=== PATIENT | female | born 1970 | race Caucasian/White ===

== ENCOUNTER 2023-04-19 06:01 | Observation (INO) | payer BC, SELFPAY ==
[2023-04-19] VITALS (7 sets, daily range): BP systolic 108–148; BP diastolic 57–87; PULSE 58–73; RESP 15–20; TEMP 36.4–36.7; O2SAT 94–99; BMI 37.2
--- NOTE | ~2023-04-19 | CT_ITS ---
EXAMINATION: CT ANGIOGRAM HEAD CT ANGIOGRAM NECK CLINICAL INFORMATION: Right-sided facial and arm numbness. COMPARISON: CT head from 04/19/2023. TECHNIQUE: Initial noncontrast disability hearing officer imaging of the head and neck was performed. Noncontrast head CT was also performed. Test bolus sequences followed by intravenous administration 70 mL of Omnipaque 350. Helical imaging was performed in the axial plane from the aortic arch to the skull vertex. Delayed postcontrast imaging of the head was also performed. The data was processed at the electronic technologist's workstation for generation of MIP sequences. Angled MIPs and volume rendered reformatted images were also generated at an offline 3D workstation. Stenoses are assessed in accordance with NASCET criteria unless otherwise indicated. This CT examination was performed using dose optimization techniques as appropriate, variously including the following: *Automated exposure control. *Adjustment of mA and/or kV according to patient size (this includes techniques or standardized protocols for targeted exams where dose is matched to indication/reason for exam; i.e. extremities or head). *Use of iterative reconstruction technique. DLP: 2126 mGy-cm FINDINGS: CT Head: There is no evidence of acute intracranial hemorrhage or edematous territorial infarction. There is no abnormal attenuation within the brain parenchyma. Bates-white matter differentiation is preserved. The ventricles are normal in size and configuration. No evidence for obstructive hydrocephalus. No abnormal mass effect or midline shift. No extra-axial fluid collections. No pathologic intra-axial enhancement or regional oligemia. No acute soft tissue or osseous abnormalities. Mild mucosal thickening of the paranasal sinuses. The mastoid air cells and middle ear cavities are clear. CT Neck: The thyroid gland and remaining cervical soft tissues are within normal limits. Reversal the normal cervical lordosis centered on C5-C6. Moderate degenerative disc disease at C5-C6 and C6-C7. Facet and uncovertebral joint arthropathy leads to osseous encroachment on the neural foramina from C3-C5. CT Upper Chest: The visualized lung apices and upper mediastinum are within normal limits. Neck CTA: Aortic Arch: Normal contour and caliber. Classic 3 vessel branching pattern of the aortic arch. Great Vessel Origins: No significant stenosis of the branch origins. Right Common Carotid Artery: No focal stenosis or occlusion. Cervical Right Internal Carotid Artery: Mild atherosclerotic disease of the carotid bulb and proximal internal carotid artery without flow-limiting stenosis. Left Common Carotid Artery: No focal stenosis or occlusion. Cervical Left Internal Carotid Artery: Normal opacification without focal stenosis or occlusion. Cervical Right Vertebral Artery: Co-dominant. No focal stenosis or occlusion. Cervical Left Vertebral Artery: Co-dominant. No focal stenosis or occlusion. Brain CTA: Intracranial Internal Carotid Arteries: No focal stenosis or occlusion. Right Anterior Cerebral Artery: Normal A1 segment. Normal opacification of the distal ALYSSA segments. Left Anterior Cerebral Artery: Normal A1 segment. Normal opacification of the distal ALYSSA segments. Anterior Communicating Artery: Normal. Right Middle Cerebral Artery: Normal M1 segment of the MCA without focal stenosis or occlusion. Normal arborization of the distal segments. Left Middle Cerebral Artery: Normal M1 segment of the MCA without focal stenosis or occlusion. Normal arborization of the distal segments. Right Vertebral Artery: Normal V4 segment. Normal opacification of the proximal segments of the posterior inferior cerebellar artery. Left Vertebral Artery: Normal V4 segment. Normal opacification of the proximal segments of the posterior inferior cerebellar artery. Basilar Artery: Normal without focal stenosis or occlusion. Normal appearance of the proximal superior cerebellar arteries. Right Posterior Cerebral Artery: Normal P1 segment. Normal opacification of the distal DETACKER segments. Left Posterior Cerebral Artery: Normal P1 segment. Normal opacification of the distal DETACKER segments. Dominant right-sided transverse/sigmoid sinuses. The left-sided transverse sinus is hypoplastic. Otherwise, normal opacification of the superior sagittal, straight, transverse, and sigmoid sinuses. CT/CT angio head neck IMPRESSION: 1. No evidence of acute intracranial hemorrhage or edematous territorial infarction. 2. CTA of the head and neck without proximal occlusion or flow-limiting stenosis. This critical result was discussed with Dr. Godinez at 1051: on 04/19/2023 and it was ascertained that the content and urgency of the report was understood at the time of direct communication.
--- NOTE | ~2023-04-19 | CT_ITS ---
EXAMINATION: CT HEAD WITHOUT CONTRAST (STROKE PROTOCOL) CLINICAL INFORMATION: Stroke protocol. Right facial numbness. Right upper extremity numbness COMPARISON: None available. TECHNIQUE: Contiguous axial imaging was performed from the skull base to vertex without intravenous administration of contrast. This CT examination was performed using dose optimization techniques as appropriate, variously including the following: *Automated exposure control *Adjustment of mA and/or kV according to patient size (this includes techniques or standardized protocols for targeted exams where dose is matched to indication/reason for exam; i.e. extremities or head) *Use of iterative reconstruction technique DLP: 620 mGy-cm FINDINGS: There is no evidence of acute intracranial hemorrhage or territorial infarction. No abnormal mass effect or midline shift is seen. Bates to white matter differentiation is well preserved. No extra-axial fluid collections are identified. No hydrocephalus. No significant volume loss. Possible age indeterminant lacunar in the right thalamus. Otherwise, no potentially abnormal attenuation within the brain parenchyma. No acute osseous or soft tissue abnormality. The mastoid air cells and visualized portions of the paranasal sinuses are well aerated. CT/CT head for stroke IMPRESSION: * No acute territorial infarct. * Questionable age-indeterminate lacunar infarct in right thalamus. This critical result was discussed with Dr Altamirano at 04/19/2023 6:32 AM and it was ascertained that the content and urgency of the report was understood at the time of direct communication.
--- NOTE | 2023-04-19 06:16 | ECG_ITS ---
Test Reason : ?stroke Blood Pressure : / mmHG Vent. Rate : 065 BPM Atrial Rate : 065 BPM P-R Int : 162 ms QRS Dur : 086 ms QT Int : 440 ms P-R-T Axes : 013 025 031 degrees QTc Int : 457 ms Normal sinus rhythm Normal ECG No previous ECGs available Referred By: Delicia Dixon Electronically Signed By:GABINO GARDUNO
--- NOTE | 2023-04-19 06:20 | ED.NEUROSD ---
HPI - Neuro Symptoms/Deficit General Chief Complaint: Stroke Stated Complaint: Facial numbness Time Seen by Provider: 04/19/23 06:16 Source: patient Mode of arrival: ambulatory History of Present Illness HPI Narrative: 52F with hx HTN p/w onset of right lower face numbness and RUE numbness. Onset 0510. Took BP meds this morning. Denies dizziness or headaches. Related Data Allergies Allergy/AdvReac Type Severity Reaction Status Date / Time Sulfa (Sulfonamide Allergy Rash Verified 04/19/23 06:14 Antibiotics) sumatriptan Allergy Rash Verified 04/19/23 06:14 ampicillin AdvReac Abdominal Verified 04/19/23 06:14 Pain Review of Systems Review of Systems: Pertinent positives and negatives as stated in HPI [facility] Past Medical History Source: nursing notes reviewed Social History Social History Alcohol intake: never Smoked in Last 30 Days: No Use of substances other than those prescribed or required for medical reasons: Yes Substance Use Type: Marijuana Substance Use Frequency: Occasionally Patient : No Physical Exam Vital Signs: Vital Signs: Last Vital Signs Temp 97.8 F 04/19/23 06:10 Pulse 61 04/19/23 06:15 Resp 18 04/19/23 06:10 BP 146/87 H 04/19/23 06:15 Pulse Ox 97 04/19/23 06:15 O2 Del Method Room Air 04/19/23 06:15 BMI result Body Mass Index 37.2 VITAL SIGNS: Reviewed. GENERAL: Well developed, well nourished, in no acute distress. HEAD: Normocephalic/atraumatic EYES: PERRLA, EOMI EARS: Ext canals without abnormality NOSE: Nares patent bilateral OROPHARYNX: no oral lesions noted, posterior pharynx clear NECK: Supple, no adenopathy LUNGS: Normal breath sounds. No adventitious sounds or accessory muscle use. SpO2<97> CARDIOVASCULAR: Regular rate and rhythm without noted murmurs ABDOMEN: Soft, non-tender, non-distended with bowel sounds. MUSCULOSKELETAL: No tenderness, deformities, or effusions noted on gross inspection. EXTREMITIES: No cyanosis, clubbing or edema. SKIN: Inspection of the skin reveals no rashes NEUROLOGIC: Alert and oriented x 4. Strength grossly intact x 4, no facial asymmetry, no pronator drift. Medical Decision Making Medical Decision Making [facility] Narrative: 52-year-old female with a remote history of migraines, has not had any in a long time and denies any headache at this time as well as no dizziness. She does have right lower face sensation differences as well as reporting that her right upper extremity has some sensation changes there are no gross motor or speech deficits. 0625: I discussed case with Dr. Valiente who agrees that patient is not a tPA candidate at this time and recommends aspirin and admission. 0632: Radiology called and states that there are no significant findings and only a questionable area on the right thalamus however this does not correspond to patient's reported symptoms. 0651: RUE numbness resolved and face symptoms improving. 0656: I discussed case with the inpatient hospitalist who accepts admission. Differential Diagnosis Please see the discussion above Consult Healthcare Provider Management of the patient was discussed with: Hospitalist and Laminate Floor Installer Please see the discussion above Lab Data Please see the Discussion above 04/19/23 06:37 04/19/23 06:37 Labs: Lab Results 04/19/23 04/19/23 04/19/23 Range/Units 06:18 06:19 06:37 WBC 6.5 (4.8-10.8) X10*3/uL RBC 4.57 (4.20-5.50) X10*6/uL Hgb 12.6 (12.0-16.0) g/dl Hct 39.0 (37.0-47.0) % MCV 85.3 (80.0-98.0) fL MCH 27.6 (27.0-33.0) pg MCHC 32.3 (31.0-35.0) g/dl RDW 14.4 (11.0-16.0) % Plt Count 248 (160-400) X10*3/uL MPV 10.0 (9.4-12.3) fL Immature Gran % (Auto) 0.2 (0.0-0.4) % Neut % (Auto) 56.7 (45-73) % Lymph % (Auto) 32.2 (20-40) % [place] % (Auto) 6.7 (2-11) % Eos % (Auto) 3.3 (0-4) % Baso % (Auto) 0.9 (0-2) % Lymph # (Auto) 2.1 (1.2-4.9) X10*3/uL [place] # (Auto) 0.4 (0.1-1.2) X10*3/uL Eos # (Auto) 0.2 (0.0-0.4) X10*3/uL Baso # (Auto) 0.1 (0.0-0.2) X10*3/uL Abs Immat Gran (auto) 0.01 (0.00-0.03) X10*3/uL Absolute Neuts (auto) 3.7 (2.0-8.3) x10*3/uL Absolute Nucleated RBC 0.000 (0.0-0.012) X10*3/uL Nucleated RBC % (auto) 0.0 (0.0-0.2) /100WBC PT (10.0-13.1) SEC Whole Blood PT 12.3 (11.1-13.5) sec INR (0.9-1.1) Whole Blood INR 1.0 (0.9-1.1) APTT (26.0-36.4) SEC POC Glucose 96 (60-115) mg/dL 04/19/23 Range/Units 06:37 WBC (4.8-10.8) X10*3/uL RBC (4.20-5.50) X10*6/uL Hgb (12.0-16.0) g/dl Hct (37.0-47.0) % MCV (80.0-98.0) fL MCH (27.0-33.0) pg MCHC (31.0-35.0) g/dl RDW (11.0-16.0) % Plt Count (160-400) X10*3/uL MPV (9.4-12.3) fL Immature Gran % (Auto) (0.0-0.4) % Neut % (Auto) (45-73) % Lymph % (Auto) (20-40) % [place] % (Auto) (2-11) % Eos % (Auto) (0-4) % Baso % (Auto) (0-2) % Lymph # (Auto) (1.2-4.9) X10*3/uL [place] # (Auto) (0.1-1.2) X10*3/uL Eos # (Auto) (0.0-0.4) X10*3/uL Baso # (Auto) (0.0-0.2) X10*3/uL Abs Immat Gran (auto) (0.00-0.03) X10*3/uL Absolute Neuts (auto) (2.0-8.3) x10*3/uL Absolute Nucleated RBC (0.0-0.012) X10*3/uL Nucleated RBC % (auto) (0.0-0.2) /100WBC PT 10.9 (10.0-13.1) SEC Whole Blood PT (11.1-13.5) sec INR 1.0 (0.9-1.1) Whole Blood INR (0.9-1.1) APTT 34.1 (26.0-36.4) SEC POC Glucose (60-115) mg/dL Independent Interpretation I performed an independent interpretation of an: EKG Interpretation: Normal sinus rhythm, HR-65, no STEMI, [place]/QRS/QTC are within normal limits. Radiology Impression Radiologist Impression: My interpretation is in agreement with radiology's impression Chronic Conditions Patient?s care impacted by: Hypertension NIH Stroke Scale Internal: Initial- Upon Arrival Level of Consciousness: Alert Level of Consciousness Questions: Answers both questions correctly Level of Consciousness Commands: Performs both tasks correctly Best Gaze: Normal Visual: No visual loss Facial Palsy: Normal Motor Arm (Right): No drift Motor Arm (Left): No drift Motor Leg (Right): No drift Motor Leg (Left): No drift Limb Ataxia: Absent Sensory: Mild to moderate sensory loss Best Language: No aphasia Dysarthia: Normal Extinction and Inattention: No abnormality Score: 1 Discharge Plan Discharge Clinical Impression: Transient cerebral ischemia, Right facial numbness Patient Disposition: Admitted As Inpatient
[2023-04-19 06:24] LABS: Glucose, Whole Blood 96 mg/dL (60-115)
[2023-04-19 06:24] LABS: Prothrombin Time Whole Bld POC 12.3 sec (11.1-13.5)
[2023-04-19 06:42] LABS: MANUAL DIFF FLAG NO
[2023-04-19 06:43] LABS: Basophils Absolute Auto 0.1 X10*3/uL (0.0-0.2); Basophils Percent Auto 0.9 % (0-2); Eosinophils Absolute Auto 0.2 X10*3/uL (0.0-0.4); Eosinophils Percent Auto 3.3 % (0-4); Hemoglobin 12.6 g/dl (12.0-16.0); Imm Gran Abs Auto 0.01 X10*3/uL (0.00-0.03); Imm Gran Pct Auto 0.2 % (0.0-0.4); Lymphocytes Absolute Auto 2.1 X10*3/uL (1.2-4.9); Lymphocytes Percent Auto 32.2 % (20-40); Mean Corpuscular HGB Conc 32.3 g/dl (31.0-35.0); Mean Corpuscular Hemoglobin 27.6 pg (27.0-33.0); Mean Corpuscular Volume 85.3 fL (80.0-98.0); Monocytes Absolute Auto 0.4 X10*3/uL (0.1-1.2); Monocytes Percent Auto 6.7 % (2-11); Neutrophils Absolute Auto 3.7 x10*3/uL (2.0-8.3); Neutrophils Percent Auto 56.7 % (45-73); Platelet Count 248 X10*3/uL (160-400); Red Blood Count 4.57 X10*6/uL (4.20-5.50); Red Cell Distribution Width 14.4 % (11.0-16.0); White Blood Count 6.5 X10*3/uL (4.8-10.8)
--- NOTE | 2023-04-19 06:49 | PC.NURSE ---
On reassessment, pt indicated that R arm numbness has resolved. States that R facial numbness/tingling still present, but more mild.
[2023-04-19 06:50] LABS: Prothrombin Time 10.9 SEC (10.0-13.1)
[2023-04-19 06:52] LABS: Partial Thromboplastin Time 34.1 SEC (26.0-36.4)
[2023-04-19] MEDS: Aspirin 81 MG TAB.CHEW 162 MG PO (06:59)
[2023-04-19 07:00] LABS: Anion Gap 13 (12-20); Blood Urea Nitrogen 13 mg/dL (9-16); Calcium 9.2 mg/dL (8.4-10.2); Carbon Dioxide 25 mmol/L (22-29); Chloride 108 mmol/L (96-108); Creatinine Clr Calc Pharmacy 79.3; Estimated Glomerular Filt Rate > 60; Glucose Random 103 mg/dL (60-115); Potassium 4.5 mmol/L (3.3-5.1); Sodium 141 mmol/L (135-145)
[2023-04-19 07:02] LABS: Troponin-I High Sensitivity < 2.7 ng/L (<3.5-17.0)
--- NOTE | 2023-04-19 08:02 | PC.NURSE ---
Alert and oriented, resp even and unlabored. Ambulating with steady gait, speaking in full clear sentences. Pt denies any pain at this time, call chavez within reach. Plan for admission and cta today
--- NOTE | 2023-04-19 08:04 | PM.IMHP ---
History of Present Illness Date of Service: 04/19/23 Chief Complaint: rigth arm and face numbness 52F PMH HTN, presented with right facial and arm numbness. patient woke up at about 510am on day of admission with right lip tingling lasted about 5 minutes, then spread to cheek, and down right shoulder and upper arm, no motor weakness, symptoms mostly resolved in ED, thought still reporting RUE not feeling exactly right. in ED CTH showed age indeterminate questionable right thalamic infarct (not consistent with current symptoms). ekg NSR. Review of Systems Review of Systems: Yes all other systems are reviewed and are negative [facility] Medical History (Updated 04/19/23 @ 08:07 by Jerrell Godinez MD) Hypertension Social History Alcohol intake: never Smoked in Last 30 Days: No Use of substances other than those prescribed or required for medical reasons: Yes Substance Use Type: Marijuana Substance Use Frequency: Occasionally Advance Directives: No Advance Directives Information Provided: Yes Patient : No Meds Allergies Allergy/AdvReac Type Severity Reaction Status Date / Time Sulfa (Sulfonamide Allergy Rash Verified 04/19/23 06:14 Antibiotics) sumatriptan Allergy Rash Verified 04/19/23 06:14 ampicillin AdvReac Abdominal Verified 04/19/23 06:14 Pain Active Medications: Current Medications Enoxaparin Sodium (Enoxaparin Sodium 40 Mg/0.4 Ml Syringe) 40 mg SUBCUT Q24H [facility] Pharmacy Consult (Consult Rx Perform Med Rec) 1 each MISCELLANE ONCE PRN PRN Reason: Consult order Sodium Chloride (0.9 % Sodium Chloride Flush 3 Ml Syringe) 3 ml IVFLUSH QSHIFT [facility] Physical Exam Vital Signs and Narrative: Vital Signs: Last Vital Signs Temp 97.8 F 04/19/23 06:10 Pulse 61 04/19/23 06:15 Resp 18 04/19/23 06:10 BP 146/87 H 04/19/23 06:15 Pulse Ox 97 04/19/23 06:15 O2 Del Method Room Air 04/19/23 06:15 BMI result Body Mass Index 37.2 General: AO X 3, no acute distress Resp: CTA bilateral, no accessory muscles used CVS: S1,S2,RRR GI: soft, non tender, non distended Neuro: motor grossly intact, alert Psych: appropriate affect, appropriate insight Results Labs 04/19/23 06:37 04/19/23 06:37 Labs: Laboratory Results - last 24 hr 04/19/23 04/19/23 04/19/23 06:18 06:19 06:37 MCV 85.3 MCH 27.6 MCHC 32.3 RDW 14.4 Plt Count 248 MPV 10.0 Immature Gran % (Auto) 0.2 Neut % (Auto) 56.7 Lymph % (Auto) 32.2 [place] % (Auto) 6.7 Eos % (Auto) 3.3 Baso % (Auto) 0.9 Lymph # (Auto) 2.1 [place] # (Auto) 0.4 Eos # (Auto) 0.2 Baso # (Auto) 0.1 Abs Immat Gran (auto) 0.01 Absolute Neuts (auto) 3.7 Absolute Nucleated RBC 0.000 Nucleated RBC % (auto) 0.0 PT Whole Blood PT 12.3 INR Whole Blood INR 1.0 APTT Anion Gap Estim Creat Clear Calc Estimated GFR POC Glucose 96 Random Glucose Calcium Total Creatine Kinase Troponin I High Sens 04/19/23 04/19/23 04/19/23 06:37 06:37 06:37 MCV MCH MCHC RDW Plt Count MPV Immature Gran % (Auto) Neut % (Auto) Lymph % (Auto) [place] % (Auto) Eos % (Auto) Baso % (Auto) Lymph # (Auto) [place] # (Auto) Eos # (Auto) Baso # (Auto) Abs Immat Gran (auto) Absolute Neuts (auto) Absolute Nucleated RBC Nucleated RBC % (auto) PT 10.9 Whole Blood PT INR 1.0 Whole Blood INR APTT 34.1 Anion Gap 13 Estim Creat Clear Calc 79.3 Estimated GFR > 60 POC Glucose Random Glucose 103 Calcium 9.2 Total Creatine Kinase 36 Troponin I High Sens < 2.7 Imaging Radiologist's Impressions: Impressions Head CT 04/19/23 06:25 IMPRESSION: * No acute territorial infarct. * Questionable age-indeterminate lacunar infarct in right thalamus. This critical result was discussed with Dr Altamirano at 04/19/2023 6:32 AM and it was ascertained that the content and urgency of the report was understood at the time of direct communication. Assessment and Plan (1) Transient cerebral ischemia: Status: Acute Plan 52F PMH HTN presented with right facial and arm parasthesias RUE and face parasthesias rule out TIA check CTA head and neck asa, statin no residual deficits, will defer PT/OT/[employer] ARCHITECT check lipids, aic tele, outpatient echo HTN permissive htn for now obesity weight loss, outpatient sleep study dvt prohpylaxis - lovenox full code Time Spent With Patient Time: Total time managing care of this patient today ____ minutes. Quality Stroke Does the patient have a stroke diagnosis?: Yes Reason for No Anti-thrombotic by Day Two: N/A - Med Ordered VTE Prior VTE?: No VTE Risk Level:: Medical - moderate - high VTE Device Contraindication: Treatment Not Indicated VTE Drug Contraindication: N/A - Med Ordered
[2023-04-19 08:26] LABS: Stroke Lab Use COMPLETE
[2023-04-19 08:31] LABS: Estimated Average Glucose 105 mg/dL; Hemoglobin A1c % 5.3 %
--- NOTE | 2023-04-19 08:33 | PHA.MEDREC ---
Pharmacy Consult ? Medication Reconciliation Pharmacy has completed the medication reconciliation. spoke with patient. She stated she took all of her medications this morning.
[2023-04-19] MEDS: iohexoL 350 MG/ML 100 ML INFUS..BTL 70 ML IV (08:53)
--- NOTE | 2023-04-19 09:43 | MHC.STROKE ---
0601 WALK IN [place] [facility] [place] FACE AND ARM NUMBNESS, DISCOVERY OF SYMPTOMS UPON WAKING AT 0510. LAST KNOWN WELL COULD HAVE BEEN AT BEDTIME. SEEN BY PROVIDER, NIHSS = 1, SHE MENTIONED A HISTORY OF MIGRAINE, CASE DISCUSSED WITH NEUROLOGIST MACHINE STACKER. STROKE PROTOCOL ACTIVATED, STAT CTH DONE, NO BLEED. EXCLUDED FROM TPA- THROMBOLYTICS DUE TO MILD NON-DISABLING SYMPTOMS AND ONSET OF SYMPTOMS CANNOT BE CONFIRMED. I WILL CONTINUE TO FOLLOW.
[2023-04-19] MEDS: Atorvastatin Calcium 80 MG TABLET PO (23:14)
[2023-04-19] MEDS: 0.9 % Sodium Chloride Flush 3 ML SYRINGE IVFLUSH (23:24)
[2023-04-20 04:00] VITALS: BP 122/62; PULSE 70; RESP 18; TEMP 37; O2SAT 96
[2023-04-20 06:52] LABS: Hematocrit 38.8 % (37.0-47.0); Hemoglobin 12.4 g/dl (12.0-16.0); Mean Corpuscular Hemoglobin 27.3 pg (27.0-33.0); Mean Corpuscular Volume 85.5 fL (80.0-98.0); Mean Platelet Volume 10.1 fL (9.4-12.3); Platelet Count 251 X10*3/uL (160-400); Red Blood Count 4.54 X10*6/uL (4.20-5.50); Red Cell Distribution Width 14.5 % (11.0-16.0); White Blood Count 6.5 X10*3/uL (4.8-10.8)
[2023-04-20 07:05] LABS: Anion Gap 12 (12-20); Blood Urea Nitrogen 14 mg/dL (9-16); Calcium 9.7 mg/dL (8.4-10.2); Carbon Dioxide 26 mmol/L (22-29); Chloride 108 mmol/L (96-108); Cholesterol 175 mg/dL; Creatinine Clr Calc Pharmacy 75.9; Estimated Glomerular Filt Rate > 60; Glucose Fasting 102 mg/dL (60-99); HDL Cholesterol 56 mg/dL; LDL Cholesterol Calculated 100 mg/dl; Potassium 4.9 mmol/L (3.3-5.1); Sodium 141 mmol/L (135-145); Triglycerides 99 mg/dL
[2023-04-20 08:00] VITALS: BP 132/87; PULSE 80; RESP 20; TEMP 36.4; O2SAT 94
--- NOTE | 2023-04-20 08:28 | PM.DS ---
DS: Providers Provider Date of Service: 04/20/23 Date of admission: 04/19/23 08:01 Primary care physician: Unknown Physician DS: Diagnosis Discharge Diagnosis (1) Transient cerebral ischemia: Status: Acute DS: Summary Hospital Course Hospital Course: from initial hpi: 52F PMH HTN, presented with right facial and arm numbness. patient woke up at about 510am on day of admission with right lip tingling lasted about 5 minutes, then spread to cheek, and down right shoulder and upper arm, no motor weakness, symptoms mostly resolved in ED, thought still reporting RUE not feeling exactly right. in ED CTH showed age indeterminate questionable right thalamic infarct (not consistent with current symptoms). ekg NSR. hospital course: patient was observed for suspected TIA. CTA head and neck was unremarkable. patient's symptoms resolved entirely, telemetry did not reveal any arrhythmia. patient will be discharged on asa and statin for secondary prophylaxis given current suspected TIA and age indeterminate right thalamic infarct seen on CTH. for HTN will continue losartan. for obesity weight loss recommended. Time Spent with Patient Time attestation: Total time managing care of this patient today ____ minutes. Discharge coordination time: Greater than 30 minutes Quality: Safe Use of Opioids Does Pt have an Active Cancer Diagnosis on the Problem List?: No Quality: Stroke Does the patient have a stroke diagnosis?: Yes Reason for No Anti-thrombotic at DC: N/A - Med Ordered Reason for No Anticoagulant at DC: Drug treatment not indicated Reason Not Initiating IV-Tpa: Drug treatment not indicated Reason for No Anti-thrombotic by Day Two: N/A - Med Ordered Reason for No Statin at DC: N/A - Med Ordered Physical Exam Vital Signs: Vital Signs: Last Vital Signs Temp 97.5 F 04/20/23 08:00 Pulse 80 04/20/23 08:00 Resp 20 04/20/23 08:00 BP 132/87 04/20/23 08:00 Pulse Ox 94 04/20/23 08:00 O2 Del Method Room Air 04/20/23 08:00 BMI result Body Mass Index 37.2 General: AO X 3, no acute distress Resp: CTA bilateral, no accessory muscles used CVS: S1,S2,RRR GI: soft, non tender, non distended Neuro: motor grossly intact, alert Psych: appropriate affect, appropriate insight DS: Data Data Completed and Pending Labs on day of discharge: Laboratory Results - last 24 hr 04/19/23 04/20/23 04/20/23 06:40 06:27 06:27 WBC 6.5 RBC 4.54 Hgb 12.4 Hct 38.8 MCV 85.5 MCH 27.3 MCHC 32.0 RDW 14.5 Plt Count 251 MPV 10.1 Absolute Nucleated RBC 0.000 Nucleated RBC % (auto) 0.0 Sodium 141 Potassium 4.9 Chloride 108 Carbon Dioxide 26 Anion Gap 12 BUN 14 Creatinine 0.93 Estim Creat Clear Calc 75.9 Estimated GFR > 60 Fasting Glucose 102 H Estimat Average Glucose 105 Hemoglobin A1c % 5.3 Calcium 9.7 Triglycerides 99 Cholesterol 175 LDL Cholesterol, Calc 100 HDL Cholesterol 56 Discharge Plan Discharge Anticipated Discharge Date/Time: 04/20/23 08:26 Patient Disposition: Home, Self-Care Discharge Diagnosis: TIA Referrals: Physician,Unknown J [Primary Care Provider] - 1 Week Discharge Medications: New aspirin 81 mg Tablet,Delayed Release (Dr/Ec) 81 mg PO DAILY Qty: 30 0RF atorvastatin 40 mg tablet 40 mg PO BEDTIME Qty: 30 0RF Continued multivitamin Tablet 1 tab PO DAILY losartan 50 mg tablet 50 mg PO DAILY levothyroxine 125 mcg tablet 125 mcg PO DAILY calcium 300 mg Tablet,Chewable 600 mg PO DAILY Discharge Orders: Discharge Order (Routine); Ordered 04/20/23 Ordered By: Jerrell Godinez Diet: Advance to usual diet Activity on Discharge: As tolerated Stand Alone Forms: Patient Portal Discharge page Care Plan Goals: prevent further strokes/tias Health Concerns: history of thalamic infarct, possible tia Plan of Treatment: baby aspirin and statin to help decrease risk of further strokes Assessment: see above
--- NOTE | 2023-04-20 08:40 | MHC.CM.PN ---
SABINE DELIVERED PT LIVES IN A [facility] IN [place] FOR SON'S GRADUATION. INDEPENDENT AT BASELINE. + COVID VAX X4 DECLINES HCP. PCP [facility]T [facility] [employer]. DP: PT HAS BEEN MEDICALLY CLEARED FOR DC HOME, NO SERVICES. SON WILL BE TRANSPORTING PATIENT BACK HOME TO [facility]
[2023-04-20] MEDS: Aspirin Enteric Coated 81 MG TABLET.DR PO (10:05)
== END 2023-04-20 10:30 | disposition home or self-care (01) ==
LOC: HO.ED 07:10 → HO.EDOVER 08:05 → HO.IMC 11:05
PROVIDERS: Admitting Provider Internal Medicine; Emergency Provider Student in an Organized Health Care Education/Training Program; Visit Provider Internal Medicine
DX: G45.9 Transient cerebral ischemic attack, unspecified (principal); R20.0 Anesthesia of skin; I10 Essential (primary) hypertension; R20.2 Paresthesia of skin; E66.9 Obesity, unspecified; Z68.37 Body mass index [BMI] 37.0-37.9, adult
CPT/HCPCS: 36415; 70450; 70496; 70498; 80048; 80061; 82550; 82947; 83036; 84484; 85025; 85027; 85610; 85730; 93005; 99222; 99285; Q9967